=== PATIENT | male | born 1955 ===

== ENCOUNTER 2018-01-07 06:32 | Day surgery (SDC) | payer OTHER ==
[2018-01-07 07:01] VITALS: BMI 24.0
--- NOTE | 2018-01-07 08:05 | CP.SDSHP ---
Same Day Surgery H & P - History Proposed Procedure: Right shoulder arthroscopy, possible rotator cuff repair, labral tear, acromioplasty Pre-Op Diagnosis: Right shoulder rotator cuff tear supraspinatous/subscapularis , labral tear, AC jt DJD, biceps tendinits - Previous Medical/Surgical History Previous Surgical History: denies - Allergies Allergies: Allergies No Known Allergies Allergy (Verified 01/07/18 07:01) - Physical Exam Vital Signs: Vital Signs 01/07/18 01/07/18 06:57 07:19 Temperature 98.1 F Pulse Rate 62 62 Respiratory 20 Rate Blood Pressure 131/86 O2 Sat by Pulse 96 Oximetry Mental Status: Alert & Oriented x3 Neuro: WNL Heart: Other (medical clearance on chart) - {Optional Preform as Required} Ortho: Other (+radial pulse, sensation intact, painful ROM) Other Pertinent Findings: MRI at outside facility, on chart - Impression Impression: 62M RHD with right shoulder RC tear/labral tear for arthroscopy. Risks/benefits/alt explained to patient, verbalized understanding, and consented to shoulder arthroscopy Pt. Evaluated Today:Candidate for Anesthesia & Procedure: Yes - Date & Time Date: 01/07/18 Time: 08:06 Short Stay Discharge - Short Stay Discharge Admitting Diagnosis/Reason for Visit: M25.511 / S46.011A/ Disposition: HOME/ ROUTINE Referrals: Chris Ness III, MD [Primary Care Provider] - Past Patient History - Past Medical History & Family History Past Medical History?: Yes - Past Social History Smoking Status: Former Smoker - CARDIAC Hx Cardiac Disorders: Yes Hx Hypercholesterolemia: Yes Hx Hypertension: Yes - PULMONARY Hx Respiratory Disorders: No - NEUROLOGICAL Hx Neurological Disorder: No - HEENT Hx HEENT Problems: No - RENAL Hx Chronic Kidney Disease: No - ENDOCRINE/METABOLIC Hx Endocrine Disorders: Yes Hx Diabetes Mellitus Type 2: Yes - HEMATOLOGICAL/ONCOLOGICAL Hx Blood Disorders: No Hx Blood Transfusions: No - INTEGUMENTARY Hx Dermatological Problems: No - MUSCULOSKELETAL/RHEUMATOLOGICAL Hx Musculoskeletal Disorders: No - GASTROINTESTINAL Hx Gastrointestinal Disorders: No - GENITOURINARY/GYNECOLOGICAL Hx Genitourinary Disorders: No - PSYCHIATRIC Hx Emotional Abuse: No Hx Physical Abuse: No - SURGICAL HISTORY Hx Surgeries: Yes Other/Comment: cardiac cath - ANESTHESIA Hx Anesthesia: Yes Hx Anesthesia Reactions: No Hx Malignant Hyperthermia: No Has any member of the family had a problem w/ anesthesia?: No
[2018-01-07] MEDS ORDERED: Lidocaine 1% Inj (20ml) ONE (12:48)
[2018-01-07] MEDS ORDERED: Lactated Ringer's 1,000 ML IV ONE ×2 (13:10→15:26)
--- NOTE | 2018-01-07 13:51 | PCM.ANESB1 ---
Interscalene Block - Brachial Plexus Date of Procedure: 01/07/18 Anesthesiologist: Jay Pre-Procedure Diagnosis: Internal derangement right shoulder Post-Procedure Diagnosis: Same Procedure Performed: Interscalene Block of Brachial Plexus Right - Procedure Interscalene Block of Brachial Plexus: This procedure was explained to the patient that it is for post-operative pain management. Consent was obtained after a thorough discussion with the patient regarding the benefits and possible complications of local anesthetic block of the Brachial Plexus at the Interscalene area. The patient was brought to the Operating Room and standard monitors were applied. Time out was held with the circulating nurse to confirm the correct surgery and appropriate block. After applying Oxygen by nasal cannula and administering IV Sedation, the patient's head was gently rotated away from the __right____operative shoulder and the anterior scalene groove was carefully palpated. The ultrasound transducer was then applied to the skin in the transverse plane and the brachial plexus was visualized lateral to the carotid artery and in between the anterior and middle scalene muscles. After identification,the anterior lateral portion of the neck was prepped with Chloraprep solution and Lidocaine 1% was injected subcutaneously for topical analgesia. At this point, a # 22 gauge Stimuplex 2 inches insulated needle was inserted into the interscalene groove and directed in a caudal and midline direction. The needle was inserted lateral to the ultrasound transducer in-plane towards the brachial plexus in a [id number] direction. Needle advancement was performed carefully under direct ultrasound visualization. Nerve stimulator was used and twitched of the affected extremity including the hand brachialis muscles, biceps and the deltoid was obtained at a current of __0.4___MA. After repeated negative aspiration,__2___cc of_0.5%____,___ropivicaine were injected and this was followed with __23___cc of _0.5____% _ropivicaine and 10 cc 0.25% bupivicaine . Under ultrasound guidance the local anesthetics were observed surrounding the roots of the brachial plexus. The needle was removed intact. The patient had stable vital signs, was conscious and in no apparent distress. The patient tolerated the interscalene block of the bracheal plexus well with stable vital signs and was prepared for subsequent surgery.
[2018-01-07] MEDS ORDERED: EPINEPHrine 1 mg/ml (1:1000) Inj IV ONE ×2 (14:05)
[2018-01-07] MEDS ORDERED: Lidocaine 1% Inj (20ml) IJ ONE (14:19)
[2018-01-07] MEDS ORDERED: Bacitracin Ointment 30 GM TUBE ONE (16:15)
[2018-01-07] MEDS ORDERED: Oxycodone/Acetaminophen 5/325 mg Tab PO PRN (16:16)
[2018-01-07] MEDS ORDERED: HYDROmorphone 0.5 mg/0.5 ml ISec IVP PRN (17:22)
--- NOTE | 2018-01-07 17:22 | PCM.SURG1 ---
Surgeon's Initial Post Op Note - Surgeon's Notes Surgeon: Thi Avionics Integration Engineer: QUOC Mendoza Type of Anesthesia: General Endo, Block Regional Anesthesia Administered By: DR Caldwell Pre-Operative Diagnosis: Internal derangement R shoulder Operative Findings: Grade3 rotator cuff tear with retraction. labral tear. biceps tendon avulsion. A/C joint arthropathy. subacromail bursitis. impingemnt subacromial Post-Operative Diagnosis: as above Operation Performed: arthroscopic rotator cuff repair. arthroscopic biceps tenodesis. arthroscopic labral repair. arthroscopic partial distal claviculecrtomy. arthroscopic partial subacromial bursectomy/lysis of adhesions Specimen/Specimens Removed: [id number]/cartilage/ bone Estimated Blood Loss: EBL {In ML}: 10 Blood Products Given: N/A Drains Used: No Drains Post-Op Condition: Good Date of Surgery/Procedure: 01/07/18 Time of Surgery/Procedure: 14:40 (time in room 1310/anaetsheisa induciton time)
[2018-01-07] MEDS ORDERED: Lactated Ringer's 1,000 ML IV SCH (17:30)
[2018-01-07 18:10] VITALS: O2SAT 100
[2018-01-07 19:07] VITALS: RESP 18
[2018-01-07 20:00] VITALS: BP 132/72; PULSE 78; TEMP 97.6
--- NOTE | 2018-01-09 13:20 | OP ---
PROCEDURE DATE: 01/07/2018 PREOPERATIVE DIAGNOSES: 1. Internal derangement of the right shoulder. 2. Grade 3 rotator cuff tear and traumatic retraction. 3. Labral tear extending anterior to posterior. 4. Biceps tendon avulsion with a small area of labral separation at that juncture. 5. Subacromial bursitis, acromioclavicular joint arthropathy, and subacromial impingement. POSTOPERATIVE DIAGNOSES: 1. Internal derangement of the right shoulder. 2. Grade 3 rotator cuff tear and traumatic retraction. 3. Labral tear extending anterior to posterior. 4. Biceps tendon avulsion with a small area of labral separation at that juncture. 5. Subacromial bursitis, acromioclavicular joint arthropathy, and subacromial impingement. OPERATIVE FINDINGS: As above. SURGEON: Chris Ness MD CRIME DATA SPECIALIST: Kylie Nguyen, certified registered nursing assistant engineer. SPECIMENS REMOVED: Synovium, cartilage bone. BLOOD LOSS: 10 mL. BLOOD PRODUCTS: No blood products given. DRAINS: No drains. POSTOPERATIVE CONDITION: Stable. TIME OF SURGERY: 1440 hours. TIME OF INCISION: 1310 hours in the room. OPERATIVE INDICATION: Gregorio Santiago is a 62-year-old gentleman with severe pain and restricted range of motion of the shoulder. The patient is referred with positive diagnosis of rotator cuff tear for repair. Pros, cons, risks and benefits of arthroscopic surgical approach were discussed. The possibility of mechanical failure, infection, thromboembolic disease, repeat of tearing, the concept that the humeral head may not be completely able to be covered by the rotator cuff was discussed. The possibility of later secondary open surgery was discussed. The surgical consent was obtained through the culturally competent nursing center tutor, Raiza and the concept that the patient may be needing later open repair for a complete coverage and grafting was discussed. The patient does not wish an open procedure at this point in time, just wishes the arthroscopy. His daughter is a medical professional in [place] and the situation was discussed with her as well. Again, possibility of mechanical failure, infection, thromboembolic disease, nerve injury, other neurologic deficits, secondary or tertiary surgery was discussed. Limited range of motion and stiffness was discussed as well. The importance of physical therapy was discussed. OPERATIVE PROCEDURE: After having obtained informed consent in the above fashion, after having identified side, site and procedure and a critical pause/time-out after the satisfactory induction of the anesthetic, the patient identified as Gregorio Lucas was placed in the modified [place] chair position with the right upper extremity was prepped and free draped in the usual fashion for upper extremity surgery. The upper extremity was prepped and free draped in the usual fashion for upper extremity surgery. This having been accomplished, great care was taken that Anesthesia positions the neck in the appropriate way. All bony prominences were well padded. After the satisfactory induction of general and scalene block anesthesia by Dr. Caldwell, after satisfactory positioning of the patient, after having obtained informed consent, after having identified side, site and procedure and a critical pause/time-out, the right upper extremity was prepped and free draped in the usual fashion for upper extremity surgery. The topographic anatomy of the shoulder was marked. The shoulder was insufflated with 10 mL of 1% lidocaine without epinephrine. Using #11 blade, followed by spreading, followed by introduction of blunt trocar, the arthroscope was introduced. Examination of the joint commences. There was found to be an extensive labral tear anterior to posterior, which was not articulated on the MRI examination, the official reading which is there. There was evidence of biceps tendon avulsion. There was evidence of marked synovitis. Triangulation was accomplished using 18-gauge spinal needle followed by #11 blade, followed by spreading. Great care was taken to staying lateral to the coracoid process. A posterolateral approach was made to the joint as well using 18-gauge spinal needle, followed by #11 blade, followed by spreading. With the arthroscope posteriorly, extensive debridement of the glenohumeral joint was accomplished anteriorly with the cannula again in an anterior portal. This having been accomplished with the arthroscope posteriorly, an extensive synovectomy and extensive debridement of the glenohumeral joint was accomplished. Chondroplasty was accomplished as well using a combination of the arthroscopic shaver and the 3.4 mm Dyonics Suction Punch. Attention was turned first to the anterior labral tear in separation. This was developed. The anterior glenoid was roughened using the 3.4 mm Dyonics Suction Punch and the periosteal elevator. This having been accomplished, the Nitinol wire was placed around the labral tear and brought out posterolaterally. FiberTape was loaded and brought out anteriorly. Drilling was accomplished and the PushLock anchor was introduced anteriorly at the 1 o'clock position and the exact same procedure was accomplished for another PushLock anchor at the 3 o'clock position. The labral tear was found to be excellently repaired. Attention was turned down to the biceps tendon. There was biceps tendon avulsion with evidence of prior trauma. We elected not to do a subpectoral tenodesis, but an intra-articular, the Lasso was placed through the base of the labrum favoring the posterior aspect to the base of the biceps tendon favoring the posterior aspect. Nitinol wire was brought out posteriorly. The FiberTape was loaded and brought out around the biceps tendon to enable the surgeon to offer an intra-articular biceps tenodesis. PushLock anchor was introduced at approximately 12 o'clock and the intra-articular biceps tenodesis was thus accomplished after drilling and insertion of the PushLock. This also stabilizes a bit of the posterior labrum. The wound was thoroughly irrigated. Further debridement was accomplished with the arthroscope. With the upper extremity in dependency, the arthroscope was placed in the subacromial space. A so-called [place] approach was accomplished using 18-gauge spinal needle, followed by #11 blade, followed by spreading, there was found to be an immense amount of proliferative and inflammatory synovitis and adhesions in the subacromial space. With the arthroscope posteriorly, using a combination of the arthroscopic shaver and the arthroscopic wand, an extensive debridement and lysis of adhesions in the subacromial space was accomplished ([id number]) as well as aggressive bursectomy. Bursectomy and lysis of adhesions having been accomplished, the undersurface of the acromion was identified. The acromioclavicular joint was identified. The capsule was debrided. Great care was taken out to address the rotator cuff. The rotator cuff tendon both supraspinatus with an element of the subscapularis was found to be widely torn and retracted at least greater than 2.5-2.8 cm. Coverage was difficulty with the arm in abduction and internal rotation. Extensive debridement of the subacromial space was accomplished so as to mobilize the rotator cuff with a periosteum elevator. This was accomplished with the arm in abduction and rotation using the Scorpion. Two sets of anchors were placed, one was brought in the deep supraspinatus. Triangulation was accomplished for the placement of the anchors at the greater tuberosity at the supraspinatus insertion using #18-gauge spinal needle, followed by #11 blade. Extensive debridement of the subacromial space was accomplished. The sutures were shuttled superiorly for the V-type mattress suture and the PushLock anchor corkscrew was impacted and the anchor was inserted with the arm in abduction and internal rotation. Going further posteriorly and laterally, a similar procedure was accomplished and adequate coverage was obtained, full coverage was impossible without patch grafting or suprascapular grafting procedure, which would be open, the patient refused the open surgery. The wound was thoroughly irrigated at this point in time with the arthroscope mid laterally using a combination of the arthroscopic bur. A partial acromioplasty was accomplished using the arthroscopic bur with the arthroscope again now posterolaterally with the bur mid laterally. A partial distal claviculectomy was accomplished using arthroscopic bur to include the articular cartilage and the distal 1 cm of the clavicle. The arthroscope was now transferred mid laterally and with the bur anteriorly, again debridement and partial distal claviculectomy was accomplished using the bur for the distal 1 cm of the clavicle to include the articular surface. Further debridement of the subacromial space was accomplished. Rotator cuff coverage was found to be adequate. There was an adequate decompression in acromioplasty. The arthroscope was removed. The wound was thoroughly irrigated. Further acromioplasty had been accomplished as well as partial distal claviculectomy. Incisions were closed with Vicryl and nylon. Intra-articular injection was deferred as this patient has scalene block. Compression dressing and shoulder abduction, so-called Gunslinger splint was applied. Chris Ness MD
== END 2018-01-07 20:15 | disposition still patient (30) ==
LOC: H.OPSURG 06:32
PROVIDERS: ATTEND Orthopaedic Surgery
DX: M25.511 Pain in right shoulder (principal); S46.011A Strain of muscle(s) and tendon(s) of the rotator cuff of right shoulder, initial encounter; E11.9 Type 2 diabetes mellitus without complications; I10 Essential (primary) hypertension; M19.011 Primary osteoarthritis, right shoulder; M75.51 Bursitis of right shoulder; E78.00 Pure hypercholesterolemia, unspecified; M75.101 Unspecified rotator cuff tear or rupture of right shoulder, not specified as traumatic
CPT/HCPCS: 29823; 29827; 29828; 82948; 88305; C1713; J0171; J0690; J2405; J7030; J7120

== ENCOUNTER 2018-01-07 20:25 | Observation (INO) | payer OTHER ==
[2018-01-07 20:25] VITALS: BMI 24.0
[2018-01-07 21:44] LABS: BASO # 0.1 K/uL (0.0-0.2); BASO % 0.3 % (0.0-2.0); EOS % 0.1 % (0.0-4.0); HEMOGLOBIN 14.4 g/dL (12.0-18.0); LYMPH # 2.1 K/uL (1.0-4.3); LYMPH % 12.1 % (20.0-40.0); MEAN CELL VOLUME 81.9 fl (80.0-94.0); MEAN CORPUSCULAR HEMOGLOBIN 26.6 pg (27.0-31.0); MEAN CORPUSCULAR HGB CONC 32.5 g/dL (33.0-37.0); MEAN PLATELET VOLUME 8.3 fl (7.2-11.7); MONO # 0.7 K/uL (0.0-0.8); MONO % 4.1 % (0.0-10.0); NEUT # 14.4 K/uL (1.8-7.0); NEUT % 83.4 % (50.0-75.0); RBC 5.42 Mil/uL (4.40-5.90); RED CELL DISTRIBUTION WIDTH 14.2 % (11.5-14.5); WHITE BLOOD COUNT 17.3 K/uL (4.8-10.8)
[2018-01-07 21:52] LABS: PARTIAL THROMBOPLASTIN TIME 32.2 Seconds (25.6-37.1); PROTHROMBIN TIME 11.6 Seconds (9.8-13.1)
[2018-01-07 21:58] LABS: ALB/GLOB RATIO 1.2 (1.0-2.1); ALBUMIN 4.1 g/dL (3.5-5.0); ALT/SGPT 37 U/L (21-72); AST/SGOT 33 U/L (17-59); BLOOD UREA NITROGEN 19 mg/dl (9-20); GFR AFRICAN-AMERICAN > 60; GFR NON-AFRICAN AMERICAN > 60
--- NOTE | 2018-01-07 22:19 | ED PDOC ---
Lower Extremity Pain/Injury Time Seen by Provider: 01/07/18 20:50 Chief Complaint (Nursing): Weakness/Neurological Deficit History Per: Patient History/Exam Limitations: no limitations Onset/Duration Of Symptoms: Gradual (today) Current Symptoms Are (Timing): Still Present Severity: Mild Additional History Per: Patient, Family Additional Complaint(s): Pt. sent from same-day surgery s/p shoulder arthroscopy for eval of left leg weakness and numbness upon ambulation. Pt. also reports mild SOB, denies chest pain. per pt and family pt was last seen normal at 1230pm, when pt went for surgery when pt awoke at approx 630 pm, pt was trying to ambulate when his left leg felt numb and week particularly he felt his foot and ankle were weak, pt states sx have markedly improved pt denies any welch, bv or dv. no leg swelling Past Medical History Reviewed: Historical Data, Nursing Documentation, Vital Signs Vital Signs: Last Vital Signs Temp 98.7 F 01/07/18 20:30 Pulse 79 01/07/18 20:30 Resp 18 01/07/18 20:30 BP 147/83 01/07/18 20:30 Pulse Ox 91 L 01/07/18 20:30 - Medical History PMH: HTN, Hypercholesterolemia Denies: Chronic Kidney Disease - Family History Family History: States: Unknown Family Hx - Living Arrangements Living Arrangements: With Family - Social History Current smoker - smoking cessation education provided: No - Home Medications Home Medications: Ambulatory Orders Medication Instructions Recorded Aspirin [Ecotrin] 81 mg PO DAILY 12/25/17 Atorvastatin [Lipitor] 80 mg PO DAILY 12/25/17 Lisinopril/Hydrochlorothiazide 12.5 - 20 mg PO DAILY 12/25/17 [Lisinopril-Hctz 20-12.5 mg Tab] Metoprolol Succinate [Toprol XL] 50 mg PO DAILY 12/25/17 metFORMIN [glucOPHAGE] 500 mg PO BID 12/25/17 oxyCODONE/Acetaminophen [Percocet 1 - 2 ea PO Q4 #30 tab 01/07/18 5/325 mg Tab] - Allergies Allergies/Adverse Reactions: Allergies Allergy/AdvReac Type Severity Reaction Status Date / Time No Known Allergies Allergy Verified 01/07/18 20:35 Wells Criteria for PE - Wells Criteria for Pulmonary Embolism Clinical Signs and Symptoms of DVT: No P.E is #1 Diagnosis, or Equally Likely: Yes Heart Rate >100: No Immobilization at least 3 days;Surgery previous 4 weeks: Yes Hemoptysis: No Malignancy w/treatment within 6 months, or palliative: No Total Score: 2.5 Review of Systems ROS Statement: Except As Marked, All Systems Reviewed And Found Negative Constitutional: Negative for: Fever, Chills Cardiovascular: Negative for: Chest Pain, Palpitations Respiratory: Positive for: Shortness of Breath Neurological: Positive for: Weakness (left foot and aleg), Numbness (left foot and leg). Negative for: Altered Mental Status, Headache, Dizziness Physical Exam - Reviewed Nursing Documentation Reviewed: Yes Vital Signs Reviewed: Yes - Physical Exam Appears: Positive for: Uncomfortable Head Exam: Positive for: NORMAL INSPECTION, NORMOCEPHALIC Eye Exam: Positive for: Normal appearance, EOMI, PERRL. Negative for: Periorbital swelling, Periorbital tenderness Neck: Positive for: Normal, Painless ROM, Supple. Negative for: Decreased ROM, Limited ROM, Trachea Midline Cardiovascular/Chest: Positive for: Regular Rate, Rhythm, Chest Non Tender. Negative for: Edema, Gallop, Murmur, Bradycardia, Tachycardia Respiratory: Positive for: Normal Breath Sounds. Negative for: Decreased Breath Sounds, Accessory Muscle Use, Crackles, Rales, Rhonchi, Stridor, Wheezing , Respiratory Distress Pulses-Dorsalis Pedis (L): 2+ Pulses-Dorsalis Pedis (R): 2+ Pulses-Post. Tibialis (L): 2+ Pulses-Post. Tibialis (R): 2+ Pulses-Radial (L): 2+ Pulses-Radial (R): 2+ Gastrointestinal/Abdominal: Positive for: Normal Exam, Bowel Sounds, Soft. Negative for: Tenderness Back: Positive for: Normal Inspection. Negative for: L CVA Tenderness, R CVA Tenderness Extremity: Positive for: Normal ROM, Other (neg babinski bl, normal sensation and strength to left hip leg foot and ankle). Negative for: Tenderness, Pedal Edema, Calf Tenderness, Deformity, Swelling Neurologic/Psych: Positive for: Alert, children's attendant II-XII, Oriented, Cerebellar Tests ( ftn and hts nml). Negative for: Motor/Sensory Deficits, Mood/Affect (calm), Aphasia, Facial Droop - Laboratory Results Result Diagrams: 01/07/18 21:37 01/07/18 21:37 - ECG ECG: Positive for: Interpreted By Me ECG Rhythm: Positive for: Normal QRS, Normal ST Segment, Sinus Rhythm, Right Bundle Branch Block Interpretation Of Abn EKG: rate of 80, rbbb O2 Sat by Pulse Oximetry: 91 Pulse Ox Interpretation: Normal - Radiology X-Ray: Interpreted by Me X-Ray Interpretation: No Acute Disease - Progress ED Course And Treament: discussed with dr cervantes and dr begum. will get ct head, cta chest and ct c spine, will get le doppler as well, nih is stroke scale is 0 Re-evaluation Time: 22:27 Condition: Improved Medical Decision Making Medical Decision Making: discussed with billy begum and hospitalist. will give asa 81 mg, pt has nml rom of left leg no pain. slight mild numbness of lle. discussed with ray will admit. Disposition - Clinical Impression Clinical Impression: TIA (transient ischemic attack) - Patient ED Disposition Is Patient to be Admitted: Yes Counseled Patient/Family Regarding: Studies Performed, Diagnosis, Need For Followup - Disposition Disposition Time: 00:10 Condition: STABLE Forms: frents (Urdu) - Pt Status Changed To: Hospital Disposition Of: Inpatient - Admit Certification Admit to Inpatient:: After my assessment, the patient will require hospitalization for at least two midnights. This is because of the severity of symptoms shown, intensity of services needed, and/or the medical risk in this patient being treated as an outpatient. - POA Present On Arrival: None
--- NOTE | 2018-01-07 22:30 | US ---
EXAM: US Duplex Left Lower Extremity Veins CLINICAL HISTORY: 62 years old, male; Pain; Leg, upper; Left TECHNIQUE: Real-time ultrasound scan of the veins of the left lower extremity with color Doppler flow, spectral waveform analysis and compression. COMPARISON: No relevant prior studies available. FINDINGS: Deep veins: Normal color and spectral Doppler flow. Normal compressibility. No deep vein thrombosis from common femoral to popliteal vein. Superficial veins: No thrombosis. Soft tissues: No popliteal cyst. IMPRESSION: 1. No evidence of DVT within LEFT lower extremity.
--- NOTE | 2018-01-07 22:34 | CT ---
EXAM: CT Head Without Intravenous Contrast CLINICAL HISTORY: 62 years old, male; Signs and symptoms; Weakness, extremity; Left; Patient HX: S/P shoulder surgery today; Additional info: Left leg numbness. TECHNIQUE: Axial computed tomography images of the head/brain without intravenous contrast. All CT scans at this facility use one or more dose reduction techniques, viz.: automated exposure control; ma/kV adjustment per patient size (including targeted exams where dose is matched to indication; i.e. head); or iterative reconstruction technique. Coronal and sagittal reformatted images were created and reviewed. COMPARISON: No relevant prior studies available. FINDINGS: Brain: No intracranial hemorrhage. No mass. No definite edema. Ventricles: No hydrocephalus. Bones/joints: No acute fracture. Soft tissues: Unremarkable. Vasculature: Mild atherosclerotic disease of intracranial arteries. Sinuses: Scattered minimal mucosal thickening. Mastoid air cells: No mastoid effusion. Orbits: Unremarkable as visualized. IMPRESSION: 1. No definite territorial infarction. Acute infarction may be CT occult within first 24 hours. If focal deficit persists, consider followup CT or MRI for further evaluation. 2. Incidental/non-acute findings are described above.
[2018-01-07] MEDS ORDERED: Iodixanol 320 MG/ML 100 ML BOTTLE IV ONE (22:56)
--- NOTE | 2018-01-08 00:02 | CT ---
EXAM: CT Cervical Spine Without Intravenous Contrast CLINICAL HISTORY: 62 years old, male; Signs and symptoms; Numbness; Patient HX: S/P shoulder surgery; Additional info: Pain and left long extremity numbness TECHNIQUE: Axial computed tomography images of the cervical spine without intravenous contrast. All CT scans at this facility use one or more dose reduction techniques, viz.: automated exposure control; ma/kV adjustment per patient size (including targeted exams where dose is matched to indication; i.e. head); or iterative reconstruction technique. Coronal and sagittal reformatted images were created and reviewed. COMPARISON: No relevant prior studies available. FINDINGS: Limitations: Suboptimal positioning. Vertebrae: No acute fracture. Straightening of cervical spine. Mild facet osteoarthrosis. Discs/spinal canal/neural foramina: Moderate degenerative disc disease at C5-C6 level. Disc herniation at C5-C6 level, suboptimally evaluated. Mild indentation thecal sac/cord at C5-C6 level. Neuroforaminal narrowing at C5-C6 level, left greater than right. Soft tissues: Unremarkable. Vasculature: Atherosclerotic disease of visualized arteries. Lung apices: Unremarkable as visualized. IMPRESSION: 1. No fracture. 2. Incidental/non-acute findings are described above.
[2018-01-08] MEDS ORDERED: Morphine 4 MG/ML VIAL IVP PRN ×3 (00:14→10:37)
--- NOTE | 2018-01-08 00:15 | CT ---
EXAM: CT Angiography Chest With Intravenous Contrast CLINICAL HISTORY: 62 years old, male; Pain and signs and symptoms; Shortness of breath; Chest pain; Type not specified; Patient HX: S/P same day surgery shoulder arthroscopy; Additional info: Cp R/O pe. Mild SOB TECHNIQUE: Axial computed tomographic angiography images of the chest with intravenous contrast using pulmonary embolism protocol. All CT scans at this facility use one or more dose reduction techniques, viz.: automated exposure control; ma/kV adjustment per patient size (including targeted exams where dose is matched to indication; i.e. head); or iterative reconstruction technique. MIP reconstructed images were created and reviewed. Coronal and sagittal reformatted images were created and reviewed. CONTRAST: 95 mL of [id number] administered intravenously. COMPARISON: No relevant prior studies available. FINDINGS: Limitations: Motion artifact - mild. Suboptimal timing of bolus. Streak artifact - mild. Pulmonary arteries: No definite filling defects within main, lobar, segmental branches. Suboptimal evaluation of subsegmental branches. Aorta: Mild atherosclerotic disease. No aneurysm. Lungs: Mild peripheral consolidation with associated volume loss within medial RIGHT lower lobe. Mild linear atelectasis/scarring. Few pulmonary nodules, up to 0.5 cm. Few calcified granulomas. Pleural space: No significant effusion. No pneumothorax. Heart: Mild cardiomegaly. No significant pericardial effusion. Coronary artery calcifications. Mediastinum: Small hiatal hernia. Mild mucous within trachea. Bones/joints: [id number] stranding within soft tissues about right shoulder/chest wall. Anchors within right humeral head. Mild degenerative changes of spine. No acute fracture. Soft tissues: See above. Lymph nodes: No pathologically enlarged lymph nodes. Liver: Fatty infiltration. IMPRESSION: 1. No definite pulmonary embolism. 2. Right lower lobe atelectasis. Superimposed pneumonia not entirely excluded. 3. Pulmonary nodules. For low-risk patients, no follow-up is necessary. For high-risk patients (smoking history or other known risk factors) an optional CT at 12 months could be performed. 4. Incidental/non-acute findings are described above.
--- NOTE | 2018-01-08 00:29 | CP.PCM.HP ---
History of Present Illness - History of Present Illness History of Present Illness: CC: LLE weakness s/p shoulder surgery this afternoon HPI: This is a 62 y/o male with HTN, HLD, DM2. He was here for outpatient R shoulder rotator cuff surgery today. He was last normal at 1230 PM prior to surgery; when he woke up in recovery around 630 PM, he noted LLE felt numb/weak and he had difficulty ambulating. He was taken to the ER. Symptoms appeared to resolve, and NIH score was ~ 0. Patient denies CP, SOB. Patient has never had symptoms like this before. Has pain in R shoulder s/p surgery. Patient did have a brachial plexus block prior to surgery. ROS: 14 systems reviewed, negative other than HPI MHx: HTN, HLD, DM2 SHx: Shoulder surgery x 4 (R) Allergies: NKDA Medications: Per med rec Family Hx: Reviewed, no relevant family Hx Social Hx: Lives with family, no sig tobacco or EtOH Surrogate dec mkr: Spouse, info on chart Present on Admission - Present on Admission Any Indicators Present on Admission: No Past Patient History - Past Medical History & Family History Past Medical History?: Yes - Past Social History Smoking Status: Former Smoker - CARDIAC Hx Hypercholesterolemia: Yes Hx Hypertension: Yes - PULMONARY Hx Respiratory Disorders: No - NEUROLOGICAL Hx Neurological Disorder: No - HEENT Hx HEENT Problems: No - RENAL Hx Chronic Kidney Disease: No - ENDOCRINE/METABOLIC Hx Endocrine Disorders: Yes Hx Diabetes Mellitus Type 2: Yes - HEMATOLOGICAL/ONCOLOGICAL Hx Blood Disorders: No Hx Blood Transfusions: No - INTEGUMENTARY Hx Dermatological Problems: No - MUSCULOSKELETAL/RHEUMATOLOGICAL Hx Musculoskeletal Disorders: No - GASTROINTESTINAL Hx Gastrointestinal Disorders: No - GENITOURINARY/GYNECOLOGICAL Hx Genitourinary Disorders: No - PSYCHIATRIC Hx Emotional Abuse: No Hx Physical Abuse: No - SURGICAL HISTORY Hx Surgeries: Yes Other/Comment: cardiac cath - ANESTHESIA Hx Anesthesia: Yes Hx Anesthesia Reactions: No Hx Malignant Hyperthermia: No Meds Allergies/Adverse Reactions: Allergies Allergy/AdvReac Type Severity Reaction Status Date / Time No Known Allergies Allergy Verified 01/07/18 20:35 Physical Exam - Constitutional Appears: No Acute Distress - Head Exam Head Exam: ATRAUMATIC, NORMOCEPHALIC - Eye Exam Eye Exam: EOMI, PERRL - ENT Exam ENT Exam: Mucous Membranes Moist - Neck Exam Neck exam: Positive for: Full Rom - Respiratory Exam Respiratory Exam: Clear to Auscultation Bilateral, NORMAL BREATHING PATTERN - Cardiovascular Exam Cardiovascular Exam: REGULAR RHYTHM, +S1, +S2 - GI/Abdominal Exam GI & Abdominal Exam: Normal Bowel Sounds, Soft - Extremities Exam Additional comments: R shoulder s/p surgery; restricted movement. - Neurological Exam Neurological exam: Alert, CN II-XII Intact, Oriented x3 - Psychiatric Exam Psychiatric exam: Normal Affect, Normal Mood - Skin Skin Exam: Dry, Warm Results - Vital Signs Recent Vital Signs: Last Vital Signs Temp 98.2 F 01/08/18 00:17 Pulse 91 H 01/08/18 00:17 Resp 18 01/08/18 00:17 BP 135/65 01/08/18 00:17 Pulse Ox 96 01/08/18 00:17 - Labs Result Diagrams: 01/07/18 21:37 01/07/18 21:37 Labs: Laboratory Results - last 24 hr 01/07/18 01/07/18 01/07/18 21:37 21:37 21:37 WBC 17.3 H D RBC 5.42 Hgb 14.4 Hct 44.4 MCV 81.9 MCH 26.6 L MCHC 32.5 L RDW 14.2 Plt Count 258 MPV 8.3 Neut % (Auto) 83.4 H Lymph % (Auto) 12.1 L [place] % (Auto) 4.1 Eos % (Auto) 0.1 Baso % (Auto) 0.3 Neut # (Auto) 14.4 H Lymph # (Auto) 2.1 [place] # (Auto) 0.7 Eos # (Auto) 0.0 Baso # (Auto) 0.1 PT 11.6 INR 1.0 APTT 32.2 D-Dimer, Quantitative 340 H Sodium 140 Potassium 4.5 Chloride 97 L Carbon Dioxide 25 Anion Gap 23 H BUN 19 Creatinine 0.7 L Est GFR ( Amer) > 60 Est GFR (Non-Af Amer) > 60 Random Glucose 140 H Calcium 9.0 Total Bilirubin 0.7 AST 33 ALT 37 Alkaline Phosphatase 76 Troponin I 0.0270 Total Protein 7.4 Albumin 4.1 Globulin 3.3 Albumin/Globulin Ratio 1.2 - Imaging and Cardiology CT scan - head Status: Image reviewed by me, Report reviewed by me (no acute findings) CT scan - chest Status: Report reviewed by me (No PE) Assessment & Plan (1) TIA (transient ischemic attack) Assessment and Plan: 62 y/o male with HTN/HLD/DM2 with transient LLE weakness s/p R shoulder surgery + brachial plexus block. 1) TIA/Weakness -Admit tele obs -Serial trops -ASA 81, cont BP and HLD medications -Consult [facility] neurology -- defer further TIA w/u to neurology 2) s/p Shoulder surgery -Pain mgmt 3) DM2 -SSI, accucheck -DM2 diet -Hold metformin given pt received contrast 4) HTN, HLD -- cont home medications 5) DVT PPx -- SCDs Status: Acute (2) S/P shoulder surgery Status: Acute (3) HTN (hypertension) Status: Acute (4) DM2 (diabetes mellitus, type 2) Status: Acute (5) HLD (hyperlipidemia) Status: Acute (6) DVT prophylaxis Status: Acute
[2018-01-08] MEDS: Oxycodone/Acetaminophen 5/325 mg Tab PO PRN ×4 (01:57→21:38)
[2018-01-08 05:23] LABS: HEMOGLOBIN 13.7 g/dL (12.0-18.0); MEAN CORPUSCULAR HEMOGLOBIN 26.6 pg (27.0-31.0); MEAN CORPUSCULAR HGB CONC 32.8 g/dL (33.0-37.0); RBC 5.14 Mil/uL (4.40-5.90); RED CELL DISTRIBUTION WIDTH 14.1 % (11.5-14.5); WHITE BLOOD COUNT 13.2 K/uL (4.8-10.8)
[2018-01-08 05:33] LABS: BLOOD UREA NITROGEN 15 mg/dl (9-20); CALCIUM 8.7 mg/dL (8.4-10.2); GFR AFRICAN-AMERICAN > 60; GFR NON-AFRICAN AMERICAN > 60
[2018-01-08] MEDS: Insulin Lispro (humaLOG) 100 Units/ml Inj SC SCH ×4 (06:38→22:30)
[2018-01-08] MEDS ORDERED: Metoprolol Succinate 50 mg XL Tab PO SCH (09:00)
--- NOTE | 2018-01-08 10:24 | CP.PCM.PN ---
Subjective - Date & Time of Evaluation Date of Evaluation: 01/08/18 Time of Evaluation: 09:30 - Subjective Subjective: Patient was seen and examined OOB to chair. He is POD#1 from R shoulder arthroscopic rotator cuff repair. Patient was admitted due to developing LLE numbness/tingling and weakness. He is being worked up medically for cardiac or neurological cause. Currently, he complains of right shoulder pain secondary to the surgery. He also states that the numbness/tingling and weakness has resolved this AM. He is able ambulate and transfer without difficulties. Objective - Vital Signs/Intake and Output Vital Signs (last 24 hours): Temp Pulse Resp BP Pulse Ox 98.1 F 87 18 155/81 H 98 01/08/18 08:00 01/08/18 08:41 01/08/18 08:00 01/08/18 08:41 01/08/18 08:00 Intake and Output: 01/08/18 01/08/18 06:59 18:59 Intake Total 120 Balance 120 - Medications Medications: Current Medications Acetaminophen (Tylenol 325mg Tab) 650 mg PO Q6 PRN PRN Reason: Pain, Mild (1-3) Aspirin (Ecotrin) 81 mg PO DAILY [facility] Last Admin: 01/08/18 08:41 Dose: 81 mg Atorvastatin Calcium (Lipitor) 80 mg PO DAILY [facility] Last Admin: 01/08/18 08:41 Dose: 80 mg Hydrochlorothiazide (Microzide) 12.5 mg PO DAILY [facility] Last Admin: 01/08/18 08:40 Dose: 12.5 mg Insulin Human Lispro (Humalog) 0 units SC ACHS [facility] PRN Reason: Protocol Last Admin: 01/08/18 06:38 Dose: Not Given Lisinopril (Zestril) 20 mg PO DAILY [facility] Last Admin: 01/08/18 08:41 Dose: 20 mg Metoprolol Succinate (Toprol Xl) 50 mg PO DAILY [facility] Last Admin: 01/08/18 08:39 Dose: 50 mg Morphine Sulfate (Morphine) 2 mg IVP Q6 PRN PRN Reason: Pain, severe (8-10) Last Admin: 01/08/18 05:30 Dose: 2 mg Ondansetron HCl (Zofran Inj) 4 mg IVP Q6 PRN PRN Reason: Nausea/Vomiting Last Admin: 01/08/18 06:45 Dose: 4 mg Oxycodone/Acetaminophen (Percocet 5/325 Mg Tab) 1 tab PO Q4 PRN PRN Reason: Pain, moderate (4-7) Stop: 01/11/18 00:15 Last Admin: 01/08/18 08:39 Dose: 1 tab - Labs Labs: 01/08/18 04:20 01/08/18 04:20 PT 11.6 Seconds (9.8-13.1) 01/07/18 21:37 INR 1.0 (0.9-1.2) 01/07/18 21:37 APTT 32.2 Seconds (25.6-37.1) 01/07/18 21:37 - Constitutional Appears: No Acute Distress - Eye Exam Eye Exam: Normal appearance - ENT Exam ENT Exam: Mucous Membranes Moist - Respiratory Exam Respiratory Exam: NORMAL BREATHING PATTERN - Extremities Exam Additional comments: Right shoulder: dressings clean, dry and intact. shoulder immobilized in ER/ABD sling. ROM restricted secondary to surgery. Sensation intact MN?UN/RN. Motor intact MN/UN/AIN/PIN. radial pulse intact LLE: No swelling, no erythema, no ecchymosis. No tenderness to palpation. Full ROM. Reflexes intact. Sensation intact SP/DP/TN b/l. Motor intact EHL/FHL/TA/ gastroc/quad/HS/hip flex b/l. pedal pulses intact. calves soft and NT b/l Assessment and Plan (1) Rotator cuff tear, right Assessment & Plan: POD#1 right shoulder RCR doing well -continue immobilization in sling, NWB -pain control, avoid NSAIDs -f/u in office next Thursday 01/18 Status: Acute (2) Weakness of left lower extremity Assessment & Plan: Patient developed transiet LLE weakness postoperatively most likely from operative positioning. His symptoms has since resolved. -PT/OT WBAT -we will monitor patients condition on an outpatient basis -cleared from ortho standpoint to d/c home -await medical clearance -The patient's case and plan was discussed in agreement with Dr. Ness Status: Acute
--- NOTE | 2018-01-08 11:32 | US ---
PROCEDURE: Duplex ultrasound of the carotid and vertebral arteries. HISTORY: tia COMPARISON: None available. TECHNIQUE: Grayscale and duplex Doppler evaluation of the cervical carotid and vertebral arteries were performed. The common carotid, carotid bifurcations and cervical ICA and proximal ECA were evaluated. The vertebral arteries were evaluated for gross patency and direction. FINDINGS: RIGHT CAROTID ARTERIES: Common Carotid Artery: Calcified and noncalcified plaque. Maximal flow velocity of 112.1 cm/s. Carotid Bifurcation: Calcified and noncalcified plaque. Internal Carotid Artery:Calcified and noncalcified plaque. Maximal flow velocity of 114.3 cm/s. External Carotid Artery (proximal branches): Normal. Maximal flow velocity of 189.6 cm/s. ICA/CCA Ratio: 1.0 LEFT CAROTID ARTERIES: Common Carotid Artery: Calcified and noncalcified plaque. Maximal flow velocity of 104.3 cm/s. Carotid Bifurcation: Calcified and noncalcified plaque. Internal Carotid Artery:Calcified and noncalcified plaque. Maximal flow velocity of 109.0 cm/s. External Carotid Artery (proximal branches): Normal. Maximal flow velocity of 148.5 cm/s. ICA/CCA Ratio: 1.0 VERTEBRAL ARTERIES: Right Vertebral Artery: Patent. Antegrade flow. Left Vertebral Artery: Patent. Antegrade flow. OTHER FINDINGS: None. IMPRESSION: No evidence of hemodynamically significant stenosis of the internal carotid arteries, bilaterally.
--- NOTE | 2018-01-08 16:43 | CP.PCM.CON ---
History of Present Illness - History of Present Illness History of Present Illness: Mr. Dedrick Santiago is a 62-year-old man with a past medical history of hypertension, HLD, DM, who underwent right rotator cuff surgery yesterday, lasting about 3 hours. After the surgery, he complained of left lower extremity numbness and weakness. CT of the head and carotid dopplers were normal. Today, he is significantly stronger and his numbness has improved. Review of Systems - Review of Systems All systems: reviewed and no additional remarkable complaints except Past Patient History - Past Medical History & Family History Past Medical History?: Yes - Past Social History Smoking Status: Never Smoked - CARDIAC Hx Hypercholesterolemia: Yes Hx Hypertension: Yes - PULMONARY Hx Respiratory Disorders: No - NEUROLOGICAL Hx Neurological Disorder: No - HEENT Hx HEENT Problems: No - RENAL Hx Chronic Kidney Disease: No - ENDOCRINE/METABOLIC Hx Endocrine Disorders: Yes Hx Diabetes Mellitus Type 2: Yes - HEMATOLOGICAL/ONCOLOGICAL Hx Blood Disorders: No Hx AIDS: No Hx Human Immunodeficiency Virus (HIV): No - INTEGUMENTARY Hx Dermatological Problems: No - MUSCULOSKELETAL/RHEUMATOLOGICAL Hx Musculoskeletal Disorders: No Hx Falls: No - GASTROINTESTINAL Hx Gastrointestinal Disorders: No - GENITOURINARY/GYNECOLOGICAL Hx Genitourinary Disorders: No - PSYCHIATRIC Hx Emotional Abuse: No Hx Physical Abuse: No Hx Substance Use: No - SURGICAL HISTORY Hx Surgeries: Yes Hx Orthopedic Surgery: Yes Other/Comment: cardiac cath 6yrs ago - ANESTHESIA Hx Anesthesia: Yes Hx Anesthesia Reactions: No Hx Malignant Hyperthermia: No Meds Allergies/Adverse Reactions: Allergies Allergy/AdvReac Type Severity Reaction Status Date / Time No Known Allergies Allergy Verified 01/07/18 20:35 - Medications Medications: Current Medications Acetaminophen (Tylenol 325mg Tab) 650 mg PO Q6 PRN PRN Reason: Pain, Mild (1-3) Aspirin (Ecotrin) 81 mg PO DAILY [facility] Last Admin: 01/08/18 08:41 Dose: 81 mg Atorvastatin Calcium (Lipitor) 80 mg PO DAILY [facility] Last Admin: 01/08/18 08:41 Dose: 80 mg Hydrochlorothiazide (Microzide) 12.5 mg PO DAILY [facility] Last Admin: 01/08/18 08:40 Dose: 12.5 mg Insulin Human Lispro (Humalog) 0 units SC ACHS [facility] PRN Reason: Protocol Last Admin: 01/08/18 06:38 Dose: Not Given Lisinopril (Zestril) 20 mg PO DAILY [facility] Last Admin: 01/08/18 08:41 Dose: 20 mg Metoprolol Succinate (Toprol Xl) 50 mg PO DAILY [facility] Last Admin: 01/08/18 08:39 Dose: 50 mg Morphine Sulfate (Morphine) 2 mg IVP Q6 PRN PRN Reason: Pain, moderate (4-7) Morphine Sulfate (Morphine) 4 mg IVP Q6 PRN PRN Reason: Pain, severe (8-10) Ondansetron HCl (Zofran Inj) 4 mg IVP Q6 PRN PRN Reason: Nausea/Vomiting Last Admin: 01/08/18 06:45 Dose: 4 mg Oxycodone/Acetaminophen (Percocet 5/325 Mg Tab) 1 tab PO Q4 PRN PRN Reason: Pain, moderate (4-7) Stop: 01/11/18 00:15 Last Admin: 01/08/18 14:09 Dose: 1 tab Physical Exam - Neurological Exam Neurological exam: Alert, CN II-XII Intact, Normal Gait, Oriented x3, Reflexes Normal Additional comments: Right arm exam limited by sling. Otherwise, no focal weakness or sensory changes. Reflexes were normal. Gait was normal. Results - Vital Signs Recent Vital Signs: Last Vital Signs Temp 98.1 F 01/08/18 12:00 Pulse 85 01/08/18 12:00 Resp 18 01/08/18 12:00 BP 154/76 H 01/08/18 12:00 Pulse Ox 93 L 01/08/18 12:00 - Labs Result Diagrams: 01/08/18 04:20 01/08/18 04:20 Labs: Laboratory Results - last 24 hr 01/07/18 01/07/18 01/07/18 21:37 21:37 21:37 WBC 17.3 H D RBC 5.42 Hgb 14.4 Hct 44.4 MCV 81.9 MCH 26.6 L MCHC 32.5 L RDW 14.2 Plt Count 258 MPV 8.3 Neut % (Auto) 83.4 H Lymph % (Auto) 12.1 L Hardin % (Auto) 4.1 Eos % (Auto) 0.1 Baso % (Auto) 0.3 Neut # (Auto) 14.4 H Lymph # (Auto) 2.1 Hardin # (Auto) 0.7 Eos # (Auto) 0.0 Baso # (Auto) 0.1 PT 11.6 INR 1.0 APTT 32.2 D-Dimer, Quantitative 340 H Sodium 140 Potassium 4.5 Chloride 97 L Carbon Dioxide 25 Anion Gap 23 H BUN 19 Creatinine 0.7 L Est GFR ( Amer) > 60 Est GFR (Non-Af Amer) > 60 POC Glucose (mg/dL) Random Glucose 140 H Hemoglobin A1c Lactic Acid Calcium 9.0 Total Bilirubin 0.7 AST 33 ALT 37 Alkaline Phosphatase 76 Troponin I 0.0270 Total Protein 7.4 Albumin 4.1 Globulin 3.3 Albumin/Globulin Ratio 1.2 Triglycerides Cholesterol LDL Cholesterol Direct HDL Cholesterol TSH 3rd Generation 01/08/18 01/08/18 01/08/18 00:55 04:20 04:20 WBC 13.2 H RBC 5.14 Hgb 13.7 Hct 41.6 MCV 81.0 MCH 26.6 L MCHC 32.8 L RDW 14.1 Plt Count 252 MPV Neut % (Auto) Lymph % (Auto) Hardin % (Auto) Eos % (Auto) Baso % (Auto) Neut # (Auto) Lymph # (Auto) Hardin # (Auto) Eos # (Auto) Baso # (Auto) PT INR APTT D-Dimer, Quantitative Sodium 139 Potassium 3.8 Chloride 99 Carbon Dioxide 31 H Anion Gap 13 BUN 15 Creatinine 0.7 L Est GFR ( Amer) > 60 Est GFR (Non-Af Amer) > 60 POC Glucose (mg/dL) Random Glucose 136 H Hemoglobin A1c Lactic Acid 1.6 Calcium 8.7 Total Bilirubin AST ALT Alkaline Phosphatase Troponin I 0.0280 Total Protein Albumin Globulin Albumin/Globulin Ratio Triglycerides Cholesterol LDL Cholesterol Direct HDL Cholesterol TSH 3rd Generation 01/08/18 01/08/18 01/08/18 05:53 11:21 11:25 WBC RBC Hgb Hct MCV MCH MCHC RDW Plt Count MPV Neut % (Auto) Lymph % (Auto) Hardin % (Auto) Eos % (Auto) Baso % (Auto) Neut # (Auto) Lymph # (Auto) Hardin # (Auto) Eos # (Auto) Baso # (Auto) PT INR APTT D-Dimer, Quantitative Sodium Potassium Chloride Carbon Dioxide Anion Gap BUN Creatinine Est GFR ( Amer) Est GFR (Non-Af Amer) POC Glucose (mg/dL) 127 H 167 H Random Glucose Hemoglobin A1c Lactic Acid Calcium Total Bilirubin AST ALT Alkaline Phosphatase Troponin I 0.0200 Total Protein Albumin Globulin Albumin/Globulin Ratio Triglycerides Cholesterol LDL Cholesterol Direct HDL Cholesterol TSH 3rd Generation 01/08/18 01/08/18 01/08/18 11:35 11:35 15:58 WBC RBC Hgb Hct MCV MCH MCHC RDW Plt Count MPV Neut % (Auto) Lymph % (Auto) Hardin % (Auto) Eos % (Auto) Baso % (Auto) Neut # (Auto) Lymph # (Auto) Hardin # (Auto) Eos # (Auto) Baso # (Auto) PT INR APTT D-Dimer, Quantitative Sodium Potassium Chloride Carbon Dioxide Anion Gap BUN Creatinine Est GFR ( Amer) Est GFR (Non-Af Amer) POC Glucose (mg/dL) 135 H Random Glucose Hemoglobin A1c 7.3 H Lactic Acid Calcium Total Bilirubin AST ALT Alkaline Phosphatase Troponin I Total Protein Albumin Globulin Albumin/Globulin Ratio Triglycerides 110 Cholesterol 134 LDL Cholesterol Direct 90 HDL Cholesterol 33 TSH 3rd Generation 1.36 Assessment & Plan (1) Weakness of left lower extremity Assessment and Plan: Likely due to positioning during surgery. Currently, the patient's weakness has resolved. Continue PT/OT. Re-consult if the weakness returns or there are any residual symptoms. May consider EMG/NCS as outpatient if the weakness progresses Thank you. Status: Acute Priority: High
[2018-01-09 00:27] VITALS: RESP 18
[2018-01-09 05:05] VITALS: O2SAT 93
[2018-01-09 08:06] VITALS: BP 141/83; PULSE 86; TEMP 98.3
[2018-01-09] MEDS: Insulin Lispro (humaLOG) 100 Units/ml Inj SC SCH (08:11)
--- NOTE | 2018-01-09 11:26 | CARD ---
APPROVED REPORT EXAM: Two-dimensional and M-mode echocardiogram with Doppler and color Doppler. Other Information Quality : GoodRhythm : NSR INDICATION CVA/TIA 2D DIMENSIONS IVSd1.65 (0.7-1.1cm)LVDd4.24 (3.9-5.9cm) LVOT Diameter2.57 (1.8-2.4cm)PWd1.11 (0.7-1.1cm) IVSs1.58 (0.8-1.2cm)LVDs3.60 (2.5-4.0cm) FS (%) 15.0 %PWs1.12 (0.8-1.2cm) M-Mode DIMENSIONS Left Atrium (MM)5.06 (2.5-4.0cm)IVSd1.65 (0.7-1.1cm) Aortic Root3.47 (2.2-3.7cm)LVDd5.00 (4.0-5.6cm) Aortic Cusp Exc.2.32 (1.5-2.0cm)PWd1.39 (0.7-1.1cm) IVSs2.71 cmFS (%) 50 % LVDs2.48 (2.0-3.8cm)PWs2.15 cm Mitral Valve MV E Klkrgtmx54.7cm/sMV DECEL [id number] A Cihhboam03.6cm/s MV YWS24rdA/A ratio0.9MVA (PHT)3.98cm2 TDI Lateral E' Peak V11.24cm/sMedial E' Peak V12.30cm/sE/Lateral E'6.8 E/Medial E'6.2 Pulmonary Valve PV Peak Ctqvabxm323.0cm/s LEFT VENTRICLE The left ventricle is normal size. There is normal left ventricular wall thickness. The left ventricular function is normal. The left ventricular ejection fraction is 60% There is normal LV segmental wall motion. The left ventricular diastolic function is normal. No left ventricle thrombus noted on this study. There is no ventricular septal defect visualized. There is no left ventricular aneurysm. There is no mass noted in the left ventricle. RIGHT VENTRICLE The right ventricle is normal size. There is normal right ventricular wall thickness. The right ventricular systolic function is normal. ATRIA The left atrium size is normal. The right atrium size is normal. The interatrial septum is intact with no evidence for an atrial septal defect. AORTIC VALVE The aortic valve is normal in structure. No aortic regurgitation is present. There is no aortic valvular stenosis. There is no aortic valvular vegetation. MITRAL VALVE The mitral valve is normal in structure. There is no evidence of mitral valve prolapse. There is no mitral valve stenosis. There is no mitral valve regurgitation noted. TRICUSPID VALVE The tricuspid valve is normal in structure. There is no tricuspid valve regurgitation noted. There is no tricuspid valve prolapse or vegetation. There is no tricuspid valve stenosis. PULMONIC VALVE The pulmonary valve is normal in structure. There is no pulmonic valvular regurgitation. There is no pulmonic valvular stenosis. GREAT VESSELS The aortic root is normal in size. The ascending aorta is normal in size. The IVC is normal in size and collapses >50% with inspiration. PERICARDIAL EFFUSION The pericardium appears normal. There is no pleural effusion. <Conclusion> Normal Echocardiogram
--- NOTE | 2018-01-09 19:37 | CP.PCM.DIS ---
Provider - Provider Date of Admission: 01/08/18 00:14 Attending physician: Lalitha Ward MD Consults: Dr. Thi Shaw Time Spent in preparation of Discharge (in minutes): 25 Hospital Course - Lab Results Lab Results: Micro Results 01/08/18 01:15 Blood Blood Culture - Preliminary NO GROWTH AFTER 24 HOURS 01/08/18 00:45 Blood Blood Culture - Preliminary NO GROWTH AFTER 24 HOURS Most Recent Lab Values WBC 13.2 K/uL (4.8-10.8) H 01/08/18 04:20 RBC 5.14 Mil/uL (4.40-5.90) 01/08/18 04:20 Hgb 13.7 g/dL (12.0-18.0) 01/08/18 04:20 Hct 41.6 % (35.0-51.0) 01/08/18 04:20 MCV 81.0 fl (80.0-94.0) 01/08/18 04:20 MCH 26.6 pg (27.0-31.0) L 01/08/18 04:20 MCHC 32.8 g/dL (33.0-37.0) L 01/08/18 04:20 RDW 14.1 % (11.5-14.5) 01/08/18 04:20 Plt Count 252 K/uL (130-400) 01/08/18 04:20 MPV 8.3 fl (7.2-11.7) 01/07/18 21:37 Neut % (Auto) 83.4 % (50.0-75.0) H 01/07/18 21:37 Lymph % (Auto) 12.1 % (20.0-40.0) L 01/07/18 21:37 [place] % (Auto) 4.1 % (0.0-10.0) 01/07/18 21:37 Eos % (Auto) 0.1 % (0.0-4.0) 01/07/18 21:37 Baso % (Auto) 0.3 % (0.0-2.0) 01/07/18 21:37 Neut # (Auto) 14.4 K/uL (1.8-7.0) H 01/07/18 21:37 Lymph # (Auto) 2.1 K/uL (1.0-4.3) 01/07/18 21:37 [place] # (Auto) 0.7 K/uL (0.0-0.8) 01/07/18 21:37 Eos # (Auto) 0.0 K/uL (0.0-0.7) 01/07/18 21:37 Baso # (Auto) 0.1 K/uL (0.0-0.2) 01/07/18 21:37 PT 11.6 Seconds (9.8-13.1) 01/07/18 21:37 INR 1.0 (0.9-1.2) 01/07/18 21:37 APTT 32.2 Seconds (25.6-37.1) 01/07/18 21:37 D-Dimer, Quantitative 340 ng/mlDDU (0-230) H 01/07/18 21:37 Sodium 139 mmol/l (132-148) 01/08/18 04:20 Potassium 3.8 MMOL/L (3.6-5.0) 01/08/18 04:20 Chloride 99 mmol/L (98-107) 01/08/18 04:20 Carbon Dioxide 31 mmol/L (22-30) H 01/08/18 04:20 Anion Gap 13 (10-20) 01/08/18 04:20 BUN 15 mg/dl (9-20) 01/08/18 04:20 Creatinine 0.7 mg/dl (0.8-1.5) L 01/08/18 04:20 Est GFR ( Amer) > 60 01/08/18 04:20 Est GFR (Non-Af Amer) > 60 01/08/18 04:20 POC Glucose (mg/dL) 127 mg/dL (65-110) H 01/09/18 05:13 Random Glucose 136 mg/dL (75-110) H 01/08/18 04:20 Hemoglobin A1c 7.3 % (4.2-6.5) H 01/08/18 11:35 Lactic Acid 1.6 MMOL/L (0.7-2.1) 01/08/18 00:55 Calcium 8.7 mg/dL (8.4-10.2) 01/08/18 04:20 Total Bilirubin 0.7 mg/dl (0.2-1.3) 01/07/18 21:37 AST 33 U/L (17-59) 01/07/18 21:37 ALT 37 U/L (21-72) 01/07/18 21:37 Alkaline Phosphatase 76 U/L (38-126) 01/07/18 21:37 Troponin I 0.0200 ng/mL (0.00-0.120) 01/08/18 11:25 Total Protein 7.4 G/DL (6.3-8.2) 01/07/18 21:37 Albumin 4.1 g/dL (3.5-5.0) 01/07/18 21:37 Globulin 3.3 gm/dL (2.2-3.9) 01/07/18 21:37 Albumin/Globulin Ratio 1.2 (1.0-2.1) 01/07/18 21:37 Triglycerides 110 mg/DL (0-149) 01/08/18 11:35 Cholesterol 134 mg/dL (0-199) 01/08/18 11:35 LDL Cholesterol Direct 90 mg/dL (0-129) 01/08/18 11:35 HDL Cholesterol 33 MG/DL (30-70) 01/08/18 11:35 TSH 3rd Generation 1.36 mIU/ML (0.46-4.68) 01/08/18 11:35 - Hospital Course Hospital Course: This is a 62 y/o male with HTN, HLD, DM2. He was here for outpatient R shoulder rotator cuff surgery on 01/08/2018. He was last normal at 1230 PM prior to surgery; when he woke up in recovery around 630 PM, he noted LLE felt numb/weak and he had difficulty ambulating. He was taken to the ER. Symptoms appeared to resolve, and NIH score was ~ 0 in the ED. The patient was subsequently admitted to the telemetry unit for observation. Carotid dopplers and CT of the head, chest, and cervical spine were all negative. Echocardiogram was also performed and found to be negative. Dr. Shaw, neurologist, evaluated the patient on 2017 and reported that the transitory weakness was likely due to positioning during his surgery as his imaging and labwork were unremarkable. He is now asymptomatic with return of his left lower extremity strength and he is able to ambulate. The patient was then discharged this morning 01/09/2018 after PT/OT. Patient may got for EMG if weakness returns as per Dr. Shaw. The patient was discharged to home today in stable condition. 1) LLE extremity weakness, thought to be most likely due to surgical positioning - TIA less likely as per neurology - Dr. Shaw consulted -Admit tele obs -Serial trops negative -ASA 81, cont BP and HLD medications as outpatient - F/u with Dr. Ness as outpatient - f/u with Dr. Shaw if weakness reutrns 2) s/p Shoulder surgery -Pain mgmt 3) DM2 - Restart metformin 4) HTN, HLD -- cont home medications 5) DVT PPx -- SCDs Status: Acute (2) S/P shoulder surgery Status: Acute - Percocet PRN given for pain medication as outpatient - Flexeril PRN outpatient for muscle spasms (3) HTN (hypertension) Status: Acute (4) DM2 (diabetes mellitus, type 2) Status: Acute (5) HLD (hyperlipidemia) Status: Acute (6) DVT prophylaxis Acute Discharge Exam - Head Exam Head Exam: ATRAUMATIC, NORMOCEPHALIC - Additional Findings Additional findings: Physical exam: Constitutional- cooperative, awake, alert Head- NCAT, PERRL Eye- PERRL, EOMI ENT- normal exam, MMM. Neck- normal inspection, supple, no JVD Respiratory- CTAB, no wheezes rales rhonchi Cardiovascular- RRR, +S1, +S2 no MRG GI/Abdominal- normal bowel sounds, soft, no mass, no hsm Skin- warm, dry Extremities Exam- normal capillary refill, normal inspection Neurological Exam- alert, awake, oriented Psych- normal mood, normal affect Discharge Plan - Discharge Medications Prescriptions: Cyclobenzaprine [Cyclobenzaprine HCl] 10 mg PO Q12H PRN #5 tab PRN Reason: Muscle Spasm oxyCODONE/Acetaminophen [Percocet 5/325 mg Tab] 1 tab PO Q4 PRN #20 tab PRN Reason: Pain, Moderate (4-7) - Follow Up Plan Condition: STABLE Disposition: HOME/ ROUTINE Instructions: Rotator Cuff Injury (DC), Hypertension (DC), Hypertension (GEN)
== END 2018-01-09 11:10 | disposition home or self-care (01) ==
LOC: H.ER 20:25 → H.ERHOLD 01-08 00:14 → H.TEL 01-08 01:34
PROVIDERS: ADMIT Internal Medicine; ATTEND Internal Medicine
DX: R53.1 Weakness (principal); R20.2 Paresthesia of skin; M25.511 Pain in right shoulder; I10 Essential (primary) hypertension; E78.5 Hyperlipidemia, unspecified; E11.9 Type 2 diabetes mellitus without complications; E78.00 Pure hypercholesterolemia, unspecified; Z87.891 Personal history of nicotine dependence
CPT/HCPCS: 70450; 71275; 72125; 80048; 80053; 80061; 82948; 83036; 83605; 84443; 84484; 85025; 85027; 85378; 85610; 85730; 87040; 93306; 93880; 93971; 99285; G0378; J2270; J2405; Q9967